=== PATIENT | male | born 1985 | race Caucasian/White ===

== ENCOUNTER 2017-03-19 12:58 | Emergency (ER) | payer BC ==
[~2017-03-19] VITALS: Ht 203.2 cm; Wt 70.3 kg
[2017-03-19] MEDS ORDERED: ALLE180T33 PO (13:05)
[2017-03-19] MEDS ORDERED: PROP1TAB PO (13:05)
[2017-03-19] MEDS ORDERED: PRED20TA PO (13:56)
[2017-03-19] MEDS ORDERED: CIPROFLOXACIN 0.3% OPHTH SOLN 2.5ML OU ONE (14:00)
[2017-03-19] MEDS ORDERED: predniSONE 20 MG TAB PO ONE (14:00)
[2017-03-19 14:15] VITALS: BP 123/74
== END 2017-03-19 14:16 | disposition home or self-care (01) ==
LOC: M ED 13:56
DX: H10.9 Unspecified conjunctivitis (principal); L50.9 Urticaria, unspecified

== ENCOUNTER → 2017-06-26 | Outpatient (REF) | payer BC ==
[~2017-06-26] MED LIST: ALLE180T33 PO; PRED20TA PO; PROP1TAB PO
[2017-06-29 09:57] LABS: CONTROL LINE MONO INT CTR LINE PRESENT
== END ==
LOC: M LAB REF 11:18
PROVIDERS: ATTEND Nurse Practitioner Family
DX: R53.83 Other fatigue (principal)

== ENCOUNTER 2018-05-28 17:21 | Emergency (ER) | payer OTHER, BC ==
[2018-05-28] MEDS: IBUPROFEN 800 MG TAB PO (20:44)
== END 2018-05-28 20:49 | disposition home or self-care (01) ==
LOC: M ED 17:21
DX: S46.812A Strain of other muscles, fascia and tendons at shoulder and upper arm level, left arm, initial encounter (principal); X58.XXXA Exposure to other specified factors, initial encounter; Y92.138 Other place on military base as the place of occurrence of the external cause; Z79.899 Other long term (current) drug therapy
CPT/HCPCS: 73030